=== PATIENT | male | born 1955 | race Caucasian/White ===

== ENCOUNTER 2025-01-22 18:15 | Emergency (ER) | payer MEDICARE ==
[~2025-01-22] VITALS: Ht 190.5 cm; Wt 81.6 kg
[~2025-01-22 18:15] MED LIST: ASPIRIN81 MG PO; LISINOPRIL10 MG PO; NORVASC5 MG PO; OXYCODONE HCL15 MG PO; PRAVACHOL40 MG PO; RITE AID KRILL500 MG PO
[2025-01-22 18:25] VITALS: BP 150/82
[2025-01-22] MEDS ORDERED: Acetaminophen/Oxycodone 5 MG/325 MG TABLET PO ONE (19:10)
[2025-01-22] MEDS ORDERED: IOHEXOL 300 MG/ML 100 ML VIAL IV ONE (19:15)
[2025-01-22 19:34] LABS: BASO # 0.1 10*3/uL (0.0-0.1); BASO % 0.7 % (0.0-1.0); EOS # 0.3 10*3/uL (0.0-0.4); EOS % 2.5 % (1.0-4.0); MEAN CELL VOLUME 84.4 fl (80.0-94.0); MEAN CORPUSCULAR HGB 27.0 pg (27.0-31.0); MEAN PLATELET VOLUME 10.2 fl (9.6-12.3); MONO # 0.9 10*3/uL (0.1-1.0); MONO % 8.1 % (3.0-9.0); NEUT # 8.3 10*3/uL (2.3-7.9); NEUT % 74.2 % (47.0-73.0); NUCLEATED RED BLOOD CELL 0.0 % (0.0-0.0); NUCLEATED RED BLOOD CELL 0.0 10*3/uL (0.0-0.0); PLATELET COUNT AUTOMATED 252 10*3/uL (130-400); RED CELL DISTRI WIDTH 13.8 % (0-14.5)
[2025-01-22] MEDS ORDERED: IOHEXOL 300 MG/ML 100 ML VIAL ONE (19:36)
[2025-01-22 19:58] LABS: BUN 9 mg/dl (9-23); SGPT/ALT 12 U/L (5-49)
[2025-01-22] MEDS ORDERED: CLINDAMYCIN HC300 MG PO (22:39)
[2025-01-22] MEDS ORDERED: HYDROCODONE-AC1 EAC1 PO (22:39)
== END 2025-01-22 23:11 | disposition home or self-care (01) ==
LOC: ED 18:15
PROVIDERS: Nurse Practitioner Family
DX: L02.31 Cutaneous abscess of buttock (principal); I10 Essential (primary) hypertension; Z79.899 Other long term (current) drug therapy; Z88.0 Allergy status to penicillin; Z98.890 Other specified postprocedural states